=== PATIENT | female | born 1990 | race Caucasian/White ===

== ENCOUNTER 2019-11-20 02:41 | Inpatient (IN) ==
[2019-11-20] MEDS ORDERED: fentaNYL citrate 100 MCG/2 ML VIAL ONE ×2 (03:10→09:44)
[2019-11-20] MEDS ORDERED: CEFAZOLIN 250 MG/ML 1 GM VIAL ONE ×2 (04:06)
[2019-11-20] MEDS ORDERED: LIDOCAINE HCL 2% MPF (LOCAL) 5 ML VIAL INFIL ONE (04:07)
[2019-11-20] MEDS ORDERED: PROPOFOL IV EMULSION 10 MG/ML 20 ML VIAL IV ONE (04:07)
[2019-11-20] MEDS ORDERED: SUCCINYLCHOLINE 100MG/5ML SYR IV ONE (04:07)
[2019-11-20] MEDS ORDERED: ONDANSETRON INJ 2 MG/ML 2 ML VIAL ONE (04:18)
[2019-11-20 04:20] LABS: INR 1.6 (0.9-1.1); Partial Thromboplastin Ratio 1.3; Partial Thromboplastin Time 35.3 Seconds (21.0-31.0); Prothrombin Time 16.4 Seconds (9.0-12.0)
[2019-11-20 04:23] LABS: Alanine Aminotransferase 15 U/L (12-78); Albumin Globulin Ratio 0.7 (0.9-2); Alkaline Phosphatase 132 U/L (45-117); Aspartate Aminotransferase 26 U/L (15-37); BUN Creatinine Ratio 15.3 (10-20); Bilirubin,Total 0.5 mg/dl (0.2-1); Blood Urea Nitrogen 18 mg/dl (7-18); Carbon Dioxide 20 mmol/L (21-32); Chloride 108 mmol/L (98-107); Est GFR (African American) 70.9; Est GFR (Non-African American) 61.2; Globulin 2.8 gm/dl (2.5-4.0); Glucose 128 mg/dl (70-99); Potassium 3.7 mmol/L (3.5-5.1); Sodium 138 mmol/L (136-145); Total Protein 4.8 gm/dl (6.4-8.2)
[2019-11-20] MEDS ORDERED: DIPHTHERIA/TETANUS/PERTUSSIS 0.5 ML SYR/VIAL IM ONE (04:23)
[2019-11-20] MEDS ORDERED: NALOXONE HCL 0.4 MG/1 ML VIAL/CARP IV PRN (04:23)
[2019-11-20] MEDS ORDERED: MORPHINE SULFATE PCA 30 MG/30 ML IV PRN (04:23)
[2019-11-20] MEDS ORDERED: SUPERCREAM 0.870% 15 GM JAR EXT PRN (04:23)
[2019-11-20] MEDS ORDERED: ONDANSETRON INJ 2 MG/ML 2 ML VIAL IV PRN (04:23)
[2019-11-20] MEDS ORDERED: SENNA 8.6 MG TAB PO PRN (04:23)
[2019-11-20] MEDS ORDERED: HYDROCORTISONE ACETATE 25 MG SUPP PR PRN (04:23)
[2019-11-20] MEDS ORDERED: BENZOCAINE 20% AER SPR 82.5 GM CAN EXT PRN (04:23)
[2019-11-20] MEDS ORDERED: MAGNESIUM HYDROXIDE SUSP 30 ML UDC PO PRN (04:23)
[2019-11-20] MEDS ORDERED: MEPERIDINE HCL 50 MG/ML CARP IV PRN ×2 (04:23→09:37)
[2019-11-20] MEDS ORDERED: PROMETHAZINE HCL 25 MG in SODIUM CHLORIDE 0.9% 50 ML IV PRN (04:23)
[2019-11-20] MEDS ORDERED: DiphenhydrAMINE HCL 50 MG/ML VIAL IV PRN (04:23)
[2019-11-20 04:27] LABS: Hematocrit (blood only) 21.1 % (37-47); Mean Corpuscular Hemoglobin 30.6 pg (25-34); Mean Corpuscular Hgb Conc 33.2 g/dL (32-36); Mean Corpuscular Volume 92.1 fL (80-100); Mean Platelet Volume 11.4 fL (7.4-10.4); Nucleated RBC # (auto) 0.06 K/uL (0-0); Nucleated RBC % (auto) 0.4 %; Platelet Count 81 K/uL (130-400); RDW Coefficient of Variation 12.6 % (11.5-14.5); RDW Standard Deviation 42.3 fL (36.4-46.3); Red Blood Count 2.29 M/uL (4.2-5.4); White Blood Count 13.27 K/uL (4.8-10.8)
[2019-11-20] MEDS ORDERED: SODIUM CHLORIDE 0.9% 250 ML IV PRN ×6 (04:28→19:17)
[2019-11-20] MEDS ORDERED: miSOPROStoL 200 MCG TAB PR ONE (04:28)
[2019-11-20 04:29] LABS: Basophils # (auto) 0.02 K/uL (0-0.2); Basophils % (auto) 0.2 %; Eosinophils # (auto) 0.03 K/uL (0-0.5); Eosinophils % (auto) 0.2 %; Immature Granulocytes # (auto) 0.15 K/uL (0.00-0.02); Immature Granulocytes % (auto) 1.1 %; Lymphocytes # (auto) 1.15 K/uL (1.2-3.4); Lymphocytes % (auto) 8.7 %; Monocytes # (auto) 1.04 K/uL (0.11-0.59); Monocytes % (auto) 7.8 %; Neutrophils # (auto) 10.88 K/uL (1.4-6.5); Platelet Estimate Decreased (Normal); Polychromasia 1+
[2019-11-20] MEDS ORDERED: LACTATED RINGER'S 1,000 ML IV SCH (04:30)
[2019-11-20 04:40] LABS: Base Excess Cord Arterial Bld -23.4 mEq/L (-9-1.8); CO2 Cord Arterial Blood 112 mmHg (39.1-73.5); HCO3 Cord Arterial Blood 15 mmol/L (19.7-28.5); Oxygen Sat Cord Arterial Blood < 60.0 % (<60); PO2 Cord Arterial Blood 15 mmHg (4.1-31.7); pH Cord Arterial Blood 6.74 (7.1-7.38)
[2019-11-20 04:41] LABS: Base Excess Cord Venous Blood -20.6 mEq/L (-7.7-1.9); Cord Venous Blood HCO3 16 mmol/L (18.4-26.8); Cord Venous Blood PCO2 107 mmHg (30.4-57.2); Cord Venous Blood PO2 19 mmHg (14.1-43.3); O2 Saturation Cord Venous Bld < 60.0 % (<68)
[2019-11-20 04:42] LABS: Fibrinogen 72 mg/dl (184-400)
[2019-11-20] MEDS ORDERED: TRANEXAMIC ACID / 0.7% NACL 1000MG/100ML BAG IV ONE (04:42)
[2019-11-20] MEDS ORDERED: TRANEXAMIC ACID 1,000 MG in 0.9 % SODIUM CHLORIDE 100 ML IV ONE (04:45)
--- NOTE | 2019-11-20 04:49 | Anesthesiology Consultation ---
Date of Service November 20, 2019 Assessment & Plan Chart Review Chart Review: Acceptable Risk for Surgery Consults Requested none History Surgery Operation Date: 11/20/19 03:00 Proposed Procedures p Section in LD - Maddison Arnold MD, FACOG Allergies Allergy/AdvReac Type Severity Reaction Status Date / Time No Known Allergies Allergy Verified 11/20/19 04:29 Medications Active Medications Generic Name Dose Route Start Last Admin Trade Name Freq PRN Reason Stop Dose Admin Meperidine HCl 50 - 75 mg 11/20/19 04:23 11/20/19 04:43 Demerol IV 12/04/19 04:22 75 mg Q4H PRN Administration Pain Physical Exam Vital Signs Last Vital Signs Pulse 86 11/20/19 04:44 BP 114/85 11/20/19 04:30 Pulse Ox 100 11/20/19 04:44 Testing Laboratory Results 11/20/19 03:47 11/20/19 03:47 PT 16.4 Seconds (9.0-12.0) H 11/20/19 03:47 INR 1.6 (0.9-1.1) H 11/20/19 03:47 APTT 35.3 Seconds (21.0-31.0) H 11/20/19 03:47 Blood Type O Positive 11/20/19 03:47 Antibody Screen NEGATIVE 11/20/19 03:47
--- NOTE | 2019-11-20 04:55 | Anesthesiology Progress Note ---
Date of Service November 20, 2019 Anesthesia Post Procedure Vital Signs Vital Signs: Pulse BP Pulse Ox 11/20/19 04:49 128 H 135/63 100 11/20/19 04:44 86 100 11/20/19 04:39 101 H 100 11/20/19 04:34 87 100 11/20/19 04:30 93 H 114/85 11/20/19 04:29 83 100 11/20/19 04:24 78 100 11/20/19 04:19 95 H 96 11/20/19 04:18 92 H 135/63 11/20/19 03:06 83 100 11/20/19 03:01 79 100 11/20/19 02:56 76 100 Transfer of Care Handoff Completed per policy Notes Mental Status: alert / awake / arousable and participated in evaluation Patient Amnestic to Procedure: Yes Nausea / Vomiting: adequately controlled Pain: adequately controlled Airway Patency, RR, SpO2: stable & adequate BP & HR: stable & adequate Hydration State: stable & adequate Anesthetic Complications: no major complications apparent (Labs indicate significant anemia and coagulopathy. Pt to be transfered to SICU for tranfusion and further mgt.)
--- NOTE | 2019-11-20 05:27 | History & Physical Report ---
Date of Service November 20, 2019 Assessment & Plan (1) bradycardia: When I found the fht in the 70s and not responding, I informed the patient that we needed to proceed emergently to delivery via c/s. in room. I briefly discussed with them the risks of surgery but that the baby was in distress and needed to be delivered. I obtained verbal consent from the patient and her . Did not have time to get preop labs. anesthesia arrived almost immediately and patient was in the OR at 3:10. Please see operative note for further details. Trying to obtain pnr. (2) with 34 completed weeks gestation: History of Present Illness Chief Complaint: cramping Primary Care Provider: NO PCP Patient is a 29 yowf with edc unknown, who presented as an unattached patient for cramping. She was in town for her baby shower. We have no records. Patient reports that she is 34 weeks with no issues with the pregna ncy. Cared for in [place]. Her history was briefly obtained. She was placed on the monitor at 2:53. They struggles to find fht. Nursing searched for about 5 minutes and then I came in with ultrasound. Baby was cephalic and fhr found to be in the low 70s. Was not recovering. Allergies Allergy/AdvReac Type Severity Reaction Status Date / Time No Known Allergies Allergy Verified 11/20/19 04:29 Patient History Medical History (Updated 11/20/19 @ 05:24 by Maddison Arnold MD, FACOG) with 34 completed weeks gestation Surgical History (Updated 11/20/19 @ 05:22 by Maddison Arnold MD, FACOG) No history of previous surgery Social History Preferred Language: Nigerien Communication Ability: Effective Cutter Helper Required: No Beliefs That Will Affect Care: None marital status: Current Living Situation: Spouse Other Information That Helps Us Care for You: No OB History first STRAIGHT CUTTER History not obtained Review of Systems All systems reviewed & are unremarkable except as noted in HPI & below Physical Exam Constitutional: WD/WN, vitals as above Gastrointestinal (Abdomen): soft, did not palpate contractions Psychiatric: A+Ox3, euthymic affect Genitourinary: cx --not examined efm--70s Results & Data Vital Signs (Past 12 Hours) Vital Signs Pulse Resp BP Pulse Ox 11/20/19 05:10 103 H 11 L 121/90 100 11/20/19 05:08 80 17 121/90 100 11/20/19 04:49 128 H 135/63 100 11/20/19 04:44 86 100 11/20/19 04:39 101 H 100 11/20/19 04:34 87 100 11/20/19 04:30 93 H 114/85 11/20/19 04:29 83 100 11/20/19 04:24 78 100 11/20/19 04:19 95 H 96 11/20/19 04:18 92 H 135/63 11/20/19 03:06 83 100 11/20/19 03:01 79 100 11/20/19 02:56 76 100 Code Status & VTE Plan VTE Prophylaxis Plan VTE Prophylaxis will be ordered: No Coding Level of Care Code None Diagnoses bradycardia with 34 completed weeks gestation Z3A.34 Additional Codes OB Charges - 73193 C/S: 09872 C/S ([id number]) OB Charges - 26379O Bakri: [id number] Bakri ([id number]) OB Procedure charges OB Charges 16660 C/S [id number] Bakri
--- NOTE | 2019-11-20 05:42 | Obstetrical Progress Note ---
Date of Service November 20, 2019 Assessment & Plan (1) DIC (disseminated intravascular coagulation): labs were returning hgb was 7, plts 81K, fibrinogen 72. There is a small amount of blood draining into the bag attached to the Bakri. Patient is in DIC from massive abruption. Plan to transfer to ICU as needs much more intensive monitoring. pulse in 80-90s, bp not hypotensive. massive transfusion protocol initiated. Patient given 800mcg of cytotec to the rectum prior to leaving the or. Given 1 gm transexamic acid in recovery here. Discussed the patient with the PA in the ICU who accepts her in transfer. (2) Placenta abruption, delivered, current hospitalization: Subjective Patient returned to the room. She opened her eyes when her name was called. Labs were drawn in the OR. Patient's vital signs remainied stable throughout her OR course. Physical Exam Constitutional WD/WN, vitals as above Genitourinary uterus palpable at a little below u Results & Data Vital Signs (Past 12 Hours) Vital Signs Temp Pulse Resp BP Pulse Ox 11/20/19 05:32 36.6 C 84 17 137/68 100 11/20/19 05:28 76 17 137/68 100 11/20/19 05:18 81 15 139/93 100 11/20/19 05:10 103 H 11 L 121/90 100 11/20/19 05:08 80 17 121/90 100 11/20/19 04:49 128 H 135/63 100 11/20/19 04:44 86 100 11/20/19 04:39 101 H 100 11/20/19 04:34 87 100 11/20/19 04:30 93 H 114/85 11/20/19 04:29 83 100 11/20/19 04:24 78 100 11/20/19 04:19 95 H 96 11/20/19 04:18 92 H 135/63 11/20/19 03:06 83 100 11/20/19 03:01 79 100 11/20/19 02:56 76 100
[2019-11-20] MEDS ORDERED: CALCIUM GLUCONATE 10% 1,000 MG in SODIUM CHLORIDE 0.9% 50 ML IV STA (05:53)
--- NOTE | 2019-11-20 06:01 | XRay Report ---
XR KUB/Abdomen 1 view CLINICAL HISTORY: Stat Section with no count COMPARISON STUDY: No previous studies for comparison. FINDINGS: The soft tissues, psoas shadows, renal outlines and intestinal gas pattern appear normal. T here is no evidence for bowel obstruction. No abnormal abdominal calcifications are seen. IMPRESSION: Normal study. No evidence for a radiopaque foreign body. ACT 112: Negative or not required by law. The above report was generated using voice recognition software. It may contain grammatical, syntax or spelling errors. Electronically signed by: Abhishek Gillette M.D. 11/20/2019 6:00 AM
[2019-11-20 06:06] LABS: Blood Urea Nitrogen 19 mg/dl (7-18); Carbon Dioxide 19 mmol/L (21-32); Chloride 107 mmol/L (98-107); Potassium 3.9 mmol/L (3.5-5.1); Sodium 137 mmol/L (136-145)
--- NOTE | 2019-11-20 06:06 | Critical Care Consultation ---
Date of Consultation November 20, 2019 History of Present Illness Attending Physician: Maddison Arnold MD, FACOG History of Present Illness Ms. Walters is a 29-year-old female with no past medical history who was 34 weeks of gestation with her first without issue who was in town for a baby shower. She normally follows in [place]. She developed abdominal cramping and presented to the emergency department. heart rate was found to be 70s and would not recover and patient consented for emergent . was delivered and found to be apneic and required intubation and required emergent transfer to [facility]. Ms. Pina was found to have Allergies Allergy/AdvReac Type Severity Reaction Status Date / Time No Known Allergies Allergy Verified 11/20/19 04:29 Patient History Medical History (Updated 11/20/19 @ 05:38 by Maddison Arnold MD, FACOG) with 34 completed weeks gestation Surgical History (Updated 11/20/19 @ 05:22 by Maddison Arnold MD, FACOG) No history of previous surgery Social History Preferred Language: Kazakh Communication Ability: Effective Cardiac Surgeon Required: No Beliefs That Will Affect Care: None marital status: Current Living Situation: Spouse Other Information That Helps Us Care for You: No Results & Data Results & Data ([facility]) Vital Signs (Past 12 Hours) Vital Signs Temp Pulse Resp BP Pulse Ox 11/20/19 06:01 37 C 93 H 13 147/86 H 100 11/20/19 05:50 36.6 C 90 16 141/83 H 100 11/20/19 05:32 36.6 C 84 17 137/68 100 11/20/19 05:28 76 17 137/68 11/20/19 05:18 81 15 139/93 100 11/20/19 05:10 103 H 11 L 121/90 100 11/20/19 05:08 80 17 121/90 100 11/20/19 04:49 128 H 135/63 100 11/20/19 04:44 86 100 11/20/19 04:39 101 H 100 11/20/19 04:34 87 100 11/20/19 04:30 93 H 114/85 11/20/19 04:29 83 100 11/20/19 04:24 78 100 11/20/19 04:19 95 H 96 11/20/19 04:18 35.7 C L 92 H 18 135/63 98 11/20/19 03:06 83 100 11/20/19 03:01 79 100 11/20/19 02:56 76 100 Coding
[2019-11-20 06:07] LABS: BUN Creatinine Ratio 15.1 (10-20); Calcium 7.8 mg/dl (8.5-10.1); Glucose 201 mg/dl (70-99)
--- NOTE | 2019-11-20 06:12 | Communication Note ---
Date of Service: November 20, 2019 addendum to H&P--Patient notes that she felt movement up to an hour prior to presentation.
--- NOTE | 2019-11-20 06:12 | XRay Report ---
XR chest 1V portable CLINICAL HISTORY: central line tube position COMPARISON STUDY: No previous studies for comparison. FINDINGS: Central catheter placed in superior vena cava. No evidence pneumothorax. Lungs are grossly clear. IMPRESSION: Central catheter placed in the superior vena cava. No evidence for pneumothorax. ACT 112: Negative or not required by law. The above report was generated using voice recognition software. It may contain grammatical, syntax or spelling errors. Electronically signed by: Abhishek Gillette M.D. 11/20/2019 6:11 AM
--- NOTE | 2019-11-20 06:12 | Procedure Note ---
Procedure Note Date of Service November 20, 2019 Note INTERNAL JUGULAR CENTRAL LINE PROCEDURE NOTE: Procedure: Internal Jugular Central Line Placement Attending: Dr. Matthew Kat Provider: JOLENE Foreman Indication: Emergent rapid blood product transfusion, Poor Venous Access, Multiple Lab Draws Necessary, etc. Anesthesia: Lidocaine 1% Line placed emergently in the setting of massive blood product transfusion for acute hemorrhage A time-out was completed verifying correct patient, procedure, site, positioning, and implants(s) or special equipment if applicable. Patients right neck was cleansed and draped in the typical sterile fashion using Chloraprep. The Internal Jugular Vein and Carotid Artery were identified using ultrasound. The superficial tissue was anesthetized using 3 mL of 1% lidocaine without epinephrine under direct visualization with the ultrasound. After adequate anesthetization was achieved, the Internal Jugular vein was cannulated under direct ultrasound guidance using an introducer needle on a syringe. Good venous blood return was maintained prior to removal of syringe from introducer needle. Using Seldinger Technique, a guide wire was advanced through the introducer needle without resistance. The introducer needle was removed and ultrasound images were obtained of the guide wire within the Internal Jugular Vein and saved to the patients medical record. A small incision was made in penetrating fashion at the guide wire insertion site utilizing an 11 blade scalpel. The dilator was advanced to the vessel without resistance. The dilator was exchanged for the triple lumen catheter which was advanced into the vessel without resistance. The guide wire was removed intact from the catheter without issue. Claves were placed on each catheter tip with confirmation of good blood flow from each lumen. Each port was easily flushed with sterile saline. The catheter was placed at 15 cm and sutured in place. BioPatch was applied to the catheter and a sterile Tegaderm dressing was applied over the catheter with careful attention to sterility. Patient tolerated procedure well. No immediate complications were met. Post procedure x-ray was completed, placement was appropriate and no pneumothorax was noted. Procedural Ultrasound Guidance: Procedure Date: 11/20/2019 Indication: Central line insertion Attending: Dr. Matthew Kat Provider: JOLENE Foreman Artery AND Vein visualized: Yes Compressible Vein: Yes Guidewire or Short Catheter seen in vein prior to dilation: Yes Line confirmed in Vein with ultrasound: Yes Images obtained are saved for permanent record. Coding CPT Codes Tubes, Drains, and Vasc Access - Tubes, Drains, and Vasc Access: [id number] Place catheter in vein superior or inferior vena cava ([id number]) Tubes, Drains, and Vasc Access - Tubes, Drains, and Vasc Access: [id number] Ultrasound Guidance For Vascular ([id number]) [facility] Procedure Codes (Charges) Tubes, Drains, and Vasc Access Procedure 1: Tubes, Drains, and Vasc Access: [id number] Place catheter in vein superior or inferior vena cava Procedure 2: Tubes, Drains, and Vasc Access: [id number] Ultrasound Guidance For Vascular
[2019-11-20] MEDS ORDERED: ICU PROTOCOL FOR HYPERGLYCEMIA PRN (06:20)
[2019-11-20 06:28] LABS: Hematocrit (blood only) 22.7 % (37-47); Hemoglobin 7.8 g/dL (12.0-16.0); Mean Corpuscular Hemoglobin 32.2 pg (25-34); Mean Corpuscular Hgb Conc 34.4 g/dL (32-36); Mean Corpuscular Volume 93.8 fL (80-100); Mean Platelet Volume 11.2 fL (7.4-10.4); Platelet Count 124 K/uL (130-400); RDW Coefficient of Variation 13.3 % (11.5-14.5); RDW Standard Deviation 45.6 fL (36.4-46.3); Red Blood Count 2.42 M/uL (4.2-5.4); White Blood Count 17.13 K/uL (4.8-10.8)
[2019-11-20] MEDS: CEFAZOLIN 2000MG 2,000 MG/15 ML SYR IV SCH ×3 (06:38→21:45)
[2019-11-20] MEDS ORDERED: miSOPROStoL 200 MCG TAB ONE (07:13)
[2019-11-20 07:27] LABS: Appearance Urine Turbid (Clear); Bacteria Urine Automated Negative (Negative); Bilirubin Urine Negative (Negative); Blood Urine 3+ (Negative); Color Urine Orange; Epithelial Cell Urine Auto >30 /lpf (0-5); Glucose Urine UA Trace (Negative); Ketones Urine Negative (Negative); Leukocyte Esterase Urine Trace (Negative); Nitrite Urine Negative (Negative); Protein Urine 4+ (Negative); RBC Urine Automated >30 /hpf (0-4); Specific Gravity Urine 1.024 (1.000-1.030); Urobilinogen Urine Negative (Negative); WBC Urine Automated >30 /hpf (0-5)
[2019-11-20 07:39] LABS: Hematocrit (blood only) 22.3 % (37-47); Hemoglobin 7.7 g/dL (12.0-16.0); Mean Corpuscular Hemoglobin 32.4 pg (25-34); Mean Corpuscular Hgb Conc 34.5 g/dL (32-36); Mean Corpuscular Volume 93.7 fL (80-100); Mean Platelet Volume 11.1 fL (7.4-10.4); Platelet Count 57 K/uL (130-400); Platelet Estimate Decreased (Normal); RDW Coefficient of Variation 13.2 % (11.5-14.5); RDW Standard Deviation 45.1 fL (36.4-46.3); Red Blood Count 2.38 M/uL (4.2-5.4); White Blood Count 12.06 K/uL (4.8-10.8)
[2019-11-20 07:47] LABS: INR 1.1 (0.9-1.1)
[2019-11-20 07:51] LABS: Fibrinogen 227 mg/dl (184-400)
--- NOTE | 2019-11-20 08:05 | Critical Care Consultation ---
Date of Consultation November 20, 2019 Assessment & Plan (1) DIC (disseminated intravascular coagulation): Impression: 29-year-old female admitted for urgent due to decreased heart tones, found to be in DIC postoperatively due to placental abruption. Liver enzymes are not elevated and the patient has no new pain so I think a diagnosis of help or amniotic fluid embolism are unlikely. She does have 4+ protein on urinalysis and preeclampsia is possible but she is not significantly hypertensive. Recommendation: 1. DIC: Suspect related to placental abruption. Continue supportive care. She has delivered and has a Jed balloon in place. She is received oxytocin. Continue to monitor labs. If hemoglobin remains stable, will try and target platelets above 50-60,000, INR less than 1.5, fibrinogen greater than 200, and normal calcium levels. Transfusion goal should be around 8. Check LDH 2. Proteinuria: Unclear etiology. No prior history of eclampsia. The patient has delivered and continued supportive care as needed. Given the absence of hypertension, I do not feel strongly the patient needs to be initiated on magnesium 3. Acute kidney injury: Mild increase in serum creatinine to 1.28 from 1.19 on admission. Bright catheter is in place. Trend for now. 4. Hypoxemia: Would benefit from a low-dose of Lasix. Continue to wean oxygen as tolerated. Continue to follow in ICU for now. (2) Placenta abruption, delivered, current hospitalization: (3) Acute kidney injury: History of Present Illness Attending Physician: Maddison Arnold MD, FACOG History of Present Illness Asked by the OB service to assist in management of the disseminated intravascular coagulation secondary to placental abruption after urgent C- section due to decreased heart tones. History is obtained from review electronic medical record and discussion with the patient. The patient is a 29-year-old G1, P0 who was visiting from out of town. She gets her care [place]. She felt abdominal cramping and presented to the emergency room. She was noted to have decreased heart tones and was taken urgently for . Please refer to the OB notes. Postoperatively, the patient had labs showing low platelets, low fibrinogen, and apparently there was some atonic contractions of the uterus intraoperatively. Jed balloon was placed and the patient received Cytotec. She was transferred to the ICU after receiving trans-examined acid and a massive transfusion protocol. She is remained hemodynamically stable. We are awaiting repeat labs from her transfusion. She did have a central venous catheter placed on arrival to the ICU. Currently the patient is easily arousable and oriented to person place and time. She has no neurological complaints. She has not noted any bleeding, bruising, or petechiae. No history of help or eclampsia. No prior history of bleeding diathesis. Based on review the medical record it appears the patient has received 1 unit of packed cells, 2 units of cryoprecipitate, 1 unit of FFP, and 1 unit of platelets at 0500 Allergies Allergy/AdvReac Type Severity Reaction Status Date / Time No Known Allergies Allergy Verified 11/20/19 04:29 Patient History Medical History (Updated 11/20/19 @ 07:55 by Mikey Kat MD) with 34 completed weeks gestation Surgical History (Updated 11/20/19 @ 05:22 by Maddison Arnold MD, FACOG) No history of previous surgery Social History Preferred Language: Nauruan Communication Ability: Effective Framing Specialist Required: No Beliefs That Will Affect Care: None marital status: Current Living Situation: Spouse Other Information That Helps Us Care for You: No Review of Systems Review of Systems: Refer to admission H&P. I have no additions or deletions Results & Data Results & Data ([facility]) Vital Signs (Past 12 Hours) Vital Signs Temp Pulse Resp BP Pulse Ox 11/20/19 06:40 87 17 100 11/20/19 06:35 90 18 103/86 100 11/20/19 06:30 91 H 21 11/20/19 06:21 104 H 13 100 11/20/19 06:20 94 H 15 142/102 H 11/20/19 06:17 88 19 139/83 11/20/19 06:16 37 C 88 14 139/83 100 11/20/19 06:14 101 H 17 118/105 H 100 11/20/19 06:10 104 H 18 100 11/20/19 06:05 84 19 140/82 100 11/20/19 06:02 98 H 13 147/86 H 100 11/20/19 06:01 37 C 93 H 13 147/86 H 100 11/20/19 06:00 86 16 100 11/20/19 05:52 82 17 100 11/20/19 05:51 82 14 141/83 H 100 11/20/19 05:50 36.6 C 90 18 139/86 100 11/20/19 05:45 36.3 C L 11/20/19 05:40 102 H 14 99 11/20/19 05:35 83 15 110/90 100 11/20/19 05:32 36.6 C 84 17 137/68 100 11/20/19 05:30 36.3 C L 78 15 100 11/20/19 05:28 74 16 137/68 11/20/19 05:20 85 14 100 11/20/19 05:18 97 H 14 139/93 100 11/20/19 05:15 36.3 C L 11/20/19 05:10 36.3 C L 82 15 121/90 11/20/19 05:08 80 17 121/90 11/20/19 05:02 123 H 16 121/90 11/20/19 05:01 112 H 17 11/20/19 05:00 36.3 C L 11/20/19 04:49 128 H 135/63 100 11/20/19 04:44 86 100 11/20/19 04:39 101 H 100 11/20/19 04:34 87 100 11/20/19 04:30 93 H 114/85 11/20/19 04:29 83 100 11/20/19 04:28 36.3 C L 15 100 11/20/19 04:24 78 100 11/20/19 04:19 95 H 96 11/20/19 04:18 35.7 C L 92 H 18 135/63 98 11/20/19 03:06 83 100 11/20/19 03:01 79 100 11/20/19 02:56 76 100 Laboratory Results 11/20/19 07:05 11/20/19 05:30 Fibrinogen 72 INR 1.6 Calcium 7.8 Liver enzymes unremarkable Urinalysis with 4+ protein and 3+ blood Diagnostic Findings Chest x-ray was independently reviewed. It demonstrates the central line to be in good position. There is hazy opacity throughout both lungs, more prominent on the right than the left. KUB was performed which demonstrated no foreign bodies. Coding Level of Care Code Critical Care 1st 30-74 mins Diagnoses DIC (disseminated intravascular coagulation) D65 Placenta abruption, delivered, current hospitalization O45.90 Acute kidney injury N17.9 Time Spent (min) 85 Comment 85 minutes critical care time between myself and critical care GIANNI evaluating managing and stabilizing patient. [id number]
[2019-11-20] MEDS ORDERED: CALCIUM CHLORIDE 10% 1,000 MG in SODIUM CHLORIDE 0.9% 50 ML IV STA (08:10)
--- NOTE | 2019-11-20 08:24 | Operative Report (OR) ---
DATE OF OPERATION: 11/20/2019 PREOPERATIVE DIAGNOSES: 1. at approximately 34 weeks. 2. bradycardia on admission. POSTOPERATIVE DIAGNOSES: 1. at approximately 34 weeks. 2. bradycardia on admission. 3. Massive abruption with [place] uterus. PROCEDURE: Emergent primary low transverse section. SURGEON: Maddison Arnold MD. ULTRASONIC SEAMING MACHINE OPERATOR: Lu Beasley RN. ESTIMATED BLOOD LOSS: 1000 mL. DICTATION ENDS HERE I attest to the content of the Intraoperative Record and any orders documented therein. Any exceptions are noted below. MTDD
[2019-11-20] MEDS ORDERED: FUROSEMIDE 10 MG in SYRINGE 0 ML IV ONE (08:30)
--- NOTE | 2019-11-20 08:42 | Obstetrical Progress Note ---
Date of Service November 20, 2019 Assessment & Plan (1) S/P section: routine postop care. They will start her brush maker machine downstairs. Keep npo for now with just a few ice chips. (2) DIC (disseminated intravascular coagulation): Correcting abnormalities. Fibrinogen back up , continuing to transfuse rbc, monitor plts. Has received 3 u prbc, 1 plt, 2 cryo, 1 ffp. Bakri in for 18 hours at 9pm. If all goes well, will plan on removing water at about that time. Day #:: 0 Subjective Patient is awake and alert. answering questions. NOtes her vagina felt itchy and then she felt a gush of blood. Notes when she is still her pain is minimal, however, with any movement she has increased pain. Physical Exam Constitutional WD/WN, vitals as above Gastrointestinal (Abdomen) fundus palpable at 1 below u Psychiatric A+Ox3, euthymic affect Genitourinary examined chux and it appears to be a watery blood tinged fluid. She had another small gush of this while examining her--very watery. ON pushing on the fundus, no gush of blood noted. Emptied the bag for the Bakri and 150cc removed--this is since surgery. There was only slightly more in the bag by my visualization since my last exam. Results & Data Vital Signs (Past 12 Hours) Vital Signs Temp Pulse Resp BP Pulse Ox 11/20/19 06:40 87 17 100 11/20/19 06:35 90 18 103/86 100 11/20/19 06:30 91 H 21 100 11/20/19 06:21 104 H 13 100 11/20/19 06:20 94 H 15 142/102 H 100 11/20/19 06:17 88 19 139/83 100 11/20/19 06:16 37 C 88 14 139/83 100 11/20/19 06:14 101 H 17 118/105 H 100 11/20/19 06:10 104 H 18 100 11/20/19 06:05 84 19 140/82 100 11/20/19 06:02 98 H 13 147/86 H 100 11/20/19 06:01 37 C 93 H 13 147/86 H 100 11/20/19 06:00 86 16 100 11/20/19 05:52 82 17 100 11/20/19 05:51 82 14 141/83 H 100 11/20/19 05:50 36.6 C 90 18 139/86 11/20/19 05:45 36.3 C L 11/20/19 05:40 102 H 14 99 11/20/19 05:35 83 15 110/90 100 11/20/19 05:32 36.6 C 84 17 137/68 100 11/20/19 05:30 36.3 C L 78 15 11/20/19 05:28 74 16 137/68 11/20/19 05:20 85 14 100 11/20/19 05:18 97 H 14 139/93 11/20/19 05:15 36.3 C L 11/20/19 05:10 36.3 C L 82 15 121/90 11/20/19 05:08 80 17 121/90 11/20/19 05:02 123 H 16 121/90 11/20/19 05:01 112 H 17 11/20/19 05:00 36.3 C L 11/20/19 04:49 128 H 135/63 100 11/20/19 04:44 86 100 11/20/19 04:39 101 H 100 11/20/19 04:34 87 100 11/20/19 04:30 93 H 114/85 11/20/19 04:29 83 100 11/20/19 04:28 36.3 C L 15 11/20/19 04:24 78 100 11/20/19 04:19 95 H 96 11/20/19 04:18 35.7 C L 92 H 18 135/63 98 11/20/19 03:06 83 100 11/20/19 03:01 79 100 11/20/19 02:56 76 100
[2019-11-20] MEDS: SODIUM CHLORIDE 0.9% 1000ML 1,000 ML IV SCH ×3 (08:57→15:21)
--- NOTE | 2019-11-20 09:21 | Operative Report (OR) ---
DATE OF OPERATION: 11/20/2019 PREOPERATIVE DIAGNOSES: 1. at suspected 34 weeks. 2. bradycardia in the 70s. POSTOPERATIVE DIAGNOSES: 1. at suspected 34 weeks. 2. bradycardia in the 70s. 3. Massive abruption. 4. Disseminated intravascular coagulation. PROCEDURE: 1. Emergent low transverse section. 2. Placement of a Bakri balloon. SURGEON: Maddison Arnold MD. WELDER ASSEMBLER: Daisy Beasley RN. ANESTHESIOLOGIST: Dr. Danish Wade. ANESTHESIA: General. ESTIMATED BLOOD LOSS: 1500 mL FLUIDS: 1400 mL of IV fluid. URINE OUTPUT: 10 mL of concentrated blood tinged urine drained from the bladder at the end of the procedure. INDICATIONS: The patient is a 1, para 0 who presents as an unattached patient to labor and delivery, noting cramping. Attempts to determine heart tones for about 5 minutes were unsuccessful, so I brought in the ultrasound machine, the heart was evaluated and heart tones were found to be in the 70s. These were unresponsive to any positioning or intervention. The patient was taken urgently to the OR. FINDINGS: Viable male infant in cephalic presentation. There was no nuchal cord. There was a couvelaire uterus consistent with massive abruption. After the baby was delivered, the placenta was very easily removed with minimal traction and after removal of the placenta, probably 750 mL plus of clot was removed from the uterus. The tubes and ovaries were noted to be normal bilaterally. The uterus was very floppy secondary to blood infiltration into the muscle wall. Apgars pending. COMPLICATIONS: DIC. DRAINS: Bright. Bag attached to Bakri balloon DISPOSITION: To recovery room in labor and delivery and then pretty quickly subsequently transferred to the ICU. DESCRIPTION OF PROCEDURE: The patient presented to labor and delivery, her arrival was approximately 2:53 when she was put on the monitor, nursing searched for heart tones for approximately 5 minutes, could not find anything. I was called into the room as I was the doctor covering unattached patients. I brought in the ultrasound and I found the heart in the left lower quadrant and when the EFM was applied it was found to be in the 70s. This was unresponsive to position change and intervention and so an urgent section was called. Verbal consent was obtained from the patient after explaining the situation to her as there was no time to obtain this formally. The patient was then taken to the operating room with entry into the operating room at 3:10. She was placed in dorsal supine position. A Bright catheter was quickly placed. Betadine was splashed on her belly and she was prepped. Once I was given the go ahead from Dr. Wade, the knife was used to make a Pfannensteil incision down to the fascia. The fascia was incised with the knife. The fascia was opened by pulling with the paper products machine operator's fingers cephalad and caudad. The muscles were bluntly in the midline. The peritoneum was entered bluntly. The incision was stretched, the bladder blade was placed. Vesicouterine peritoneum was identified, entered with scissors. The bladder flap was created digitally. Hysterotomy incision was made with the knife and it was stretched cephalad and caudad with the paper products machine operator's fingers. The paper products machine operator's hand was placed into the uterus. A knuckle of cord then came up into the uterine incision. Then using fundal pressure, the fetus was delivered. The cord was clamped and cut and the was immediately handed to the awaiting nurses for drying and attention. Cord blood and gases were obtained. Please see their notes for evaluation. The placenta was easily removed from the uterus with minimal traction on the cord. After removal of the placenta at least 750 mL of fairly well organized clot came out after the placenta was delivered with an additional removal of several more small clots. I reached my hand into the abdominal cavity and exteriorized the uterus, it was boggy, it was a blue color consistent with blood infiltration into the muscle. The uterus was cleared of all clot and debris, aggressive massage was performed. Pitocin was given into the uterine muscle and IV. The hysterotomy incision was then repaired in 2 layers, the first in a running locked layer, the second in an imbricating layer and hemostasis was noted to be good from the incision. The posterior cul-de-sac was irrigated and cleared of a few more clots and debris with moistened laparotomy sponges. The uterus was reinteriorized. The hysterotomy incision was again inspected and found to be hemostatic. The gutters were cleared with laparotomy sponges removing a couple of further clots. Further clot was removed from the anterior bladder flap, but the bladder flap was hemostatic. The rectus muscles were reapproximated with several interrupted sutures of 0 Vicryl. The rectus muscles were examined and found to be hemostatic. The fascia was then reapproximated with 0 Vicryl starting at the edges and meeting in the midline. The subcuticular tissue was copiously irrigated with warm normal saline and the skin was then closed with 4-0 Vicryl subcuticular stitch. Since a sponge and needle count was not able to be performed prior to starting the procedure, we called for a KUB x-ray which was then done and read in the OR by me without evidence of retained sponges, sharps or instruments. The incision was then dressed. Attention was then turned to the vagina. Her legs were placed in a frog leg position. Massage was done of the uterus. It still continued to be quite boggy and there continued to be bleeding from the uterus. A Bakri balloon was then placed into the uterus by placing my hand into the vagina and guiding the balloon into the uterus. 200 mL of sterile saline was then placed into the balloon and then the tubing was attached to a Bright catheter. The patient was then transferred to a regular bed and taken to the recovery room. Please see the pending note for further information about her transfer to the ICU. I attest to the content of the Intraoperative Record and any orders documented therein. Any exceptions are noted below. ALMAZ
[2019-11-20] MEDS ORDERED: fentaNYL citrate 100 MCG/2 ML VIAL IV ONE (09:37)
[2019-11-20] MEDS: PRENATAL VITAMIN 1 TAB PO SCH (09:38)
[2019-11-20] MEDS: SIMETHICONE 80 MG CHEW PO SCH ×4 (09:38→20:16)
[2019-11-20] MEDS: FERROUS SULFATE 325 MG TAB PO SCH (09:38)
[2019-11-20] MEDS: DOCUSATE SODIUM 100 MG CAP PO SCH ×2 (09:46→20:17)
[2019-11-20] MEDS ORDERED: MEPERIDINE HCL 25 MG/ML CARP/VIAL IV PRN (09:57)
[2019-11-20 12:57] LABS: Hematocrit (blood only) 24.8 % (37-47); Hemoglobin 8.8 g/dL (12.0-16.0); Mean Corpuscular Hemoglobin 31.5 pg (25-34); Mean Corpuscular Hgb Conc 35.5 g/dL (32-36); Mean Corpuscular Volume 88.9 fL (80-100); Mean Platelet Volume 11.6 fL (7.4-10.4); Platelet Count 65 K/uL (130-400); RDW Coefficient of Variation 13.6 % (11.5-14.5); RDW Standard Deviation 44.6 fL (36.4-46.3); Red Blood Count 2.79 M/uL (4.2-5.4); White Blood Count 12.19 K/uL (4.8-10.8)
--- NOTE | 2019-11-20 13:06 | Obstetrical Progress Note ---
Date of Service November 20, 2019 Assessment & Plan (1) S/P section: (2) DIC (disseminated intravascular coagulation): Having normal lochia and decreasing output in the Bakri bag. Continue current therapy. Plan to start deflating Bakri at about 9pm. Expressed my sympathy for the situation with her son. Aware of the +3 protein on admission and that they got +4 in ICU. She has not been hypertensive through out her stay. did not get vitals prior to going to or, but was not hypertensive in the or. Her lfts postop were normal. Her envelope stamping machine operator was elevated but this is most likely explained by acute blood loss. I do not at this time think preeclampsia is an issue with this patient. I do not have a good explanation for her severe abruption. On discuss with the blood bank, she has had three units of prbc transfused as there is 1 unit of the 4 I initially ordered in the blood bank and then 4 more that were ordered by icu. She has had 1 plt, 2 cryo and one unit of ffp. There was some confusion that she got blood products in the OR, which she did not. Day #:: 0 Subjective Patient is resting in her bed. Her spoke with the NICU and her son is not doing well. Her is on the way to [facility] now. Patient has a negative retoucher hanging for pain and just received iv demerol. Physical Exam Constitutional WD/WN, vitals as above Gastrointestinal (Abdomen) appropriately tender, I think the fundus is 1cm or so below the umbilicus. Psychiatric A+Ox3, euthymic affect Genitourinary examined the chux and pad that were just changed by nursing and there is a small amount of blood and a little clot there is a small amount of watery red in the tube from the Bakri, only about 50 cc of clot in the bag when pushing on fundus, no gush noted. Results & Data Vital Signs (Past 12 Hours) Vital Signs Temp Pulse Resp BP Pulse Ox 11/20/19 11:20 71 13 121/78 99 11/20/19 11:05 68 13 119/73 98 11/20/19 10:50 66 18 121/83 99 11/20/19 10:35 65 11 L 132/79 100 11/20/19 10:33 36.4 C L 70 13 127/76 99 06/07/20 10:20 68 13 127/76 99 11/20/19 10:05 67 13 124/76 99 11/20/19 09:50 64 16 134/86 99 11/20/19 09:36 74 18 125/83 100 11/20/19 09:20 78 10 L 121/97 100 11/20/19 09:05 84 12 130/81 100 11/20/19 08:54 36.2 C L 76 12 137/80 98 11/20/19 08:50 73 16 137/80 100 11/20/19 08:35 36.2 C L 78 19 131/84 100 11/20/19 08:20 70 20 141/91 H 99 11/20/19 08:06 94 H 14 113/85 100 11/20/19 08:00 86 11/20/19 07:50 68 16 115/98 99 11/20/19 07:35 70 16 136/84 100 11/20/19 07:20 84 11 L 133/80 100 11/20/19 07:05 74 19 130/87 100 11/20/19 06:40 87 17 100 11/20/19 06:35 90 18 103/86 100 11/20/19 06:30 91 H 21 100 11/20/19 06:21 104 H 13 100 11/20/19 06:20 94 H 15 142/102 H 100 11/20/19 06:17 88 19 139/83 100 11/20/19 06:16 37 C 88 14 139/83 100 11/20/19 06:14 101 H 17 118/105 H 100 11/20/19 06:10 104 H 18 100 11/20/19 06:05 84 19 140/82 100 11/20/19 06:02 98 H 13 147/86 H 100 11/20/19 06:01 37 C 93 H 13 147/86 H 100 11/20/19 06:00 86 16 100 11/20/19 05:52 82 17 100 11/20/19 05:51 82 14 141/83 H 100 11/20/19 05:50 36.6 C 90 18 139/86 100 11/20/19 05:45 36.3 C L 11/20/19 05:40 102 H 14 99 11/20/19 05:35 83 15 110/90 100 11/20/19 05:34 36.2 C L 65 14 130/81 99 11/20/19 05:32 36.6 C 84 17 137/68 100 11/20/19 05:30 36.3 C L 78 15 100 11/20/19 05:28 74 16 137/68 11/20/19 05:20 85 14 100 11/20/19 05:18 97 H 14 139/93 100 11/20/19 05:15 36.3 C L 11/20/19 05:10 36.3 C L 82 15 121/90 11/20/19 05:08 80 17 121/90 11/20/19 05:02 123 H 16 121/90 11/20/19 05:01 112 H 17 11/20/19 05:00 36.3 C L 11/20/19 04:49 128 H 135/63 11/20/19 04:44 86 100 11/20/19 04:39 101 H 100 11/20/19 04:34 87 100 11/20/19 04:30 93 H 114/85 11/20/19 04:29 83 11/20/19 04:28 36.3 C L 15 11/20/19 04:24 78 100 11/20/19 04:19 95 H 96 11/20/19 04:18 35.7 C L 92 H 18 135/63 98 11/20/19 03:06 83 100 11/20/19 03:01 79 100 11/20/19 02:56 76 100
[2019-11-20 13:43] LABS: Prothrombin Time 10.9 Seconds (9.0-12.0)
[2019-11-20 19:14] LABS: Hematocrit (blood only) 20.7 % (37-47); Hemoglobin 7.4 g/dL (12.0-16.0)
[2019-11-20 19:46] LABS: Mean Corpuscular Hemoglobin 30.9 pg (25-34); Mean Platelet Volume 11.9 fL (7.4-10.4); Platelet Count 64 K/uL (130-400); RDW Coefficient of Variation 14.3 % (11.5-14.5); RDW Standard Deviation 45.5 fL (36.4-46.3); Red Blood Count 2.36 M/uL (4.2-5.4)
[2019-11-20 20:14] LABS: Mean Corpuscular Hgb Conc 35.7 g/dL (32-36); Mean Corpuscular Volume 88.5 fL (80-100)
--- NOTE | 2019-11-20 21:48 | Anesthesiology Progress Note ---
Date of Service November 20, 2019 Anesthesia Post Procedure Vital Signs Vital Signs: Temp Pulse Resp BP Pulse Ox 11/20/19 20:38 78 20 133/67 100 11/20/19 20:08 80 16 141/68 H 99 11/20/19 19:53 37 C 79 17 152/93 H 97 11/20/19 19:35 36.8 C 85 20 141/87 H 99 11/20/19 18:32 80 17 132/75 99 11/20/19 17:32 81 21 138/86 97 11/20/19 16:32 81 16 132/79 95 11/20/19 16:00 80 11/20/19 15:32 85 21 144/76 H 100 11/20/19 14:32 97 H 14 145/98 H 100 11/20/19 13:32 91 H 15 127/72 93 11/20/19 12:32 92 H 15 142/91 H 98 11/20/19 11:20 71 13 121/78 99 11/20/19 11:05 68 13 119/73 98 11/20/19 10:50 66 18 121/83 99 11/20/19 10:35 65 11 L 132/79 100 11/20/19 10:33 36.4 C L 70 13 127/76 99 11/20/19 10:20 68 13 127/76 99 11/20/19 10:05 67 13 124/76 99 11/20/19 09:50 64 16 134/86 99 11/20/19 09:36 74 18 125/83 100 11/20/19 09:20 78 10 L 121/97 100 11/20/19 09:05 84 12 130/81 100 11/20/19 08:54 36.2 C L 76 12 137/80 98 11/20/19 08:50 73 16 137/80 100 11/20/19 08:35 36.2 C L 78 19 131/84 100 11/20/19 08:20 70 20 141/91 H 99 11/20/19 08:06 94 H 14 113/85 100 11/20/19 08:00 86 11/20/19 07:50 68 16 115/98 99 11/20/19 07:35 70 16 136/84 100 11/20/19 07:20 84 11 L 133/80 100 11/20/19 07:05 74 19 130/87 100 06/07/20 06:40 87 17 100 11/20/19 06:35 90 18 103/86 100 11/20/19 06:30 91 H 21 100 11/20/19 06:21 104 H 13 100 11/20/19 06:20 94 H 15 142/102 H 100 11/20/19 06:17 88 19 139/83 100 11/20/19 06:16 37 C 88 14 139/83 100 11/20/19 06:14 101 H 17 118/105 H 100 11/20/19 06:10 104 H 18 100 11/20/19 06:05 84 19 140/82 100 11/20/19 06:02 98 H 13 147/86 H 100 11/20/19 06:01 37 C 93 H 13 147/86 H 100 11/20/19 06:00 86 16 100 11/20/19 05:52 82 17 100 11/20/19 05:51 82 14 141/83 H 100 11/20/19 05:50 36.6 C 90 18 139/86 100 11/20/19 05:45 36.3 C L 11/20/19 05:40 102 H 14 99 11/20/19 05:35 83 15 110/90 100 11/20/19 05:34 36.2 C L 65 14 130/81 99 11/20/19 05:32 36.6 C 84 17 137/68 100 11/20/19 05:30 36.3 C L 78 15 100 11/20/19 05:28 74 16 137/68 100 11/20/19 05:20 85 14 100 11/20/19 05:18 97 H 14 139/93 100 11/20/19 05:15 36.3 C L 11/20/19 05:10 36.3 C L 82 15 121/90 100 11/20/19 05:08 80 17 121/90 100 11/20/19 05:02 123 H 16 121/90 100 11/20/19 05:01 112 H 17 11/20/19 05:00 36.3 C L 11/20/19 04:49 128 H 135/63 100 11/20/19 04:44 86 100 11/20/19 04:39 101 H 100 11/20/19 04:34 87 100 11/20/19 04:30 93 H 114/85 11/20/19 04:29 83 100 11/20/19 04:28 36.3 C L 15 100 11/20/19 04:24 78 100 11/20/19 04:19 95 H 96 11/20/19 04:18 35.7 C L 92 H 18 135/63 98 11/20/19 03:06 83 100 11/20/19 03:01 79 100 11/20/19 02:56 76 100 Pain Intensity Bilateral Abdomen: Pain Intensity: 2 Transfer of Care Handoff Completed per policy Notes Mental Status: alert / awake / arousable and participated in evaluation Patient Amnestic to Procedure: Yes Nausea / Vomiting: adequately controlled Pain: adequately controlled Airway Patency, RR, SpO2: stable & adequate BP & HR: stable & adequate Hydration State: stable & adequate Anesthetic Complications: no major complications apparent Notes: Pt seen, resting in bed. AAO, VSS. Comfortable breathing room air. Reports no recall of surgery or any other complaints. Still anemic, PRBC transfusion ongoing. Plts remain low, PT has responded to cryo/FFP administration. No anesthesia related complications noted. Further care as per molecular biology scientist and certified dialysis technician.
--- NOTE | 2019-11-20 22:15 | Obstetrical Progress Note ---
Date of Service November 20, 2019 Assessment & Plan (1) S/P section: (2) DIC (disseminated intravascular coagulation): Getting another unit of blood but plts are stable slowly removing fluid from Bakri. lochia very good. continue current management. Day #:: 0 Subjective Resting in bed. Noting some discomfort in the rlq that started about 15 minutes ago. Physical Exam Constitutional WD/WN, vitals as above Psychiatric A+Ox3, euthymic affect Genitourinary minimal drainage in bag for Bakri. Removed second 50cc (total of 100cc) from balloon minimal lochia Results & Data Vital Signs (Past 12 Hours) Vital Signs Temp Pulse Pulse Resp BP BP Pulse Ox 11/20/19 21:42 37.1 C 81 14 133/67 100 11/20/19 20:38 78 20 133/67 100 11/20/19 20:08 80 16 141/68 H 99 11/20/19 20:00 75 17 134/85 95 11/20/19 19:53 37 C 79 17 152/93 H 97 11/20/19 19:35 36.8 C 85 20 141/87 H 99 11/20/19 18:32 80 17 132/75 99 11/20/19 17:32 81 21 138/86 97 11/20/19 16:32 81 16 132/79 95 11/20/19 16:00 80 11/20/19 15:32 85 21 144/76 H 100 11/20/19 14:32 97 H 14 145/98 H 100 11/20/19 13:32 91 H 15 127/72 93 11/20/19 12:32 92 H 15 142/91 H 98 11/20/19 11:20 71 13 121/78 99 11/20/19 11:05 68 13 119/73 98 11/20/19 10:50 66 18 121/83 99 11/20/19 10:35 65 11 L 132/79 100 11/20/19 10:33 36.4 C L 70 13 127/76 99 11/20/19 10:20 68 13 127/76 99
[2019-11-21 00:27] LABS: Hematocrit (blood only) 23.2 % (37-47); Hemoglobin 8.1 g/dL (12.0-16.0); Mean Corpuscular Hemoglobin 30.1 pg (25-34); Mean Corpuscular Hgb Conc 34.9 g/dL (32-36); Mean Corpuscular Volume 86.2 fL (80-100); RDW Coefficient of Variation 14.8 % (11.5-14.5); RDW Standard Deviation 46.4 fL (36.4-46.3); Red Blood Count 2.69 M/uL (4.2-5.4); White Blood Count 8.99 K/uL (4.8-10.8)
[2019-11-21] MEDS: SODIUM CHLORIDE 0.9% 1000ML 1,000 ML IV SCH ×3 (00:31→11:14)
[2019-11-21 00:33] LABS: Mean Platelet Volume 11.7 fL (7.4-10.4); Platelet Count 58 K/uL (130-400)
[2019-11-21 00:46] LABS: Prothrombin Time 10.3 Seconds (9.0-12.0)
[2019-11-21 00:47] LABS: Fibrinogen 321 mg/dl (184-400)
[2019-11-21 00:56] LABS: Albumin Globulin Ratio 0.7 (0.9-2); BUN Creatinine Ratio 15.4 (10-20); Bilirubin,Total 0.5 mg/dl (0.2-1); Calcium 7.8 mg/dl (8.5-10.1); Creatinine Clr Calc Pharmacy 84.7 ml/min; Est GFR (African American) 118.2; Globulin 2.8 gm/dl (2.5-4.0); Magnesium 1.6 mg/dl (1.8-2.4); Total Protein 4.8 gm/dl (6.4-8.2)
[2019-11-21] MEDS: MAGNESIUM SULFATE / D5W 1 GM/100 ML BAG IV SCH ×2 (01:24→03:05)
--- NOTE | 2019-11-21 01:46 | Obstetrical Progress Note ---
Date of Service November 21, 2019 Assessment & Plan (1) DIC (disseminated intravascular coagulation): Continues to do well. Balloon out and doing well. Continue to monitor closely. Labs back. fibrinogen now over 300. h/h is hovering around 8. NO evidence of continued bleeding. Vitals are stable. Could consider another unit of blood. plts now 57K. Will see what they are in the am. would like to keep above 50K. Day #:: 0 Subjective Patient resting in bed. Pain tolerable . Physical Exam Constitutional WD/WN, vitals as above Psychiatric A+Ox3, euthymic affect Genitourinary last of water removed from balloon and balloon removed. Pads patient has on are dry. Really no bleeding noted. About 50cc of bloody fluid in the bag. Results & Data Vital Signs (Past 12 Hours) Vital Signs Temp Pulse Pulse Resp BP BP Pulse Ox 11/21/19 00:00 36.9 C 69 12 127/75 98 11/20/19 23:30 66 12 97 11/20/19 23:00 84 16 126/78 98 11/20/19 22:30 77 15 100 11/20/19 22:00 80 15 134/85 100 11/20/19 21:42 37.1 C 81 14 133/67 100 11/20/19 20:38 78 20 133/67 100 11/20/19 20:08 80 16 141/68 H 99 11/20/19 20:00 75 17 133/72 95 11/20/19 19:53 37 C 79 17 152/93 H 97 11/20/19 19:35 36.8 C 85 20 141/87 H 99 11/20/19 18:32 80 17 132/75 99 11/20/19 17:32 81 21 138/86 97 11/20/19 16:32 81 16 132/79 95 11/20/19 16:00 80 11/20/19 15:32 85 21 144/76 H 100 11/20/19 14:32 97 H 14 145/98 H 100
[2019-11-21 04:49] LABS: Hematocrit (blood only) 22.6 % (37-47); Hemoglobin 7.7 g/dL (12.0-16.0); Mean Corpuscular Hgb Conc 34.1 g/dL (32-36); Mean Corpuscular Volume 87.9 fL (80-100); Nucleated RBC # (auto) 0.02 K/uL (0-0); Nucleated RBC % (auto) 0.3 %; RDW Coefficient of Variation 15.2 % (11.5-14.5); RDW Standard Deviation 48.6 fL (36.4-46.3); Red Blood Count 2.57 M/uL (4.2-5.4); White Blood Count 7.94 K/uL (4.8-10.8)
[2019-11-21] MEDS: CEFAZOLIN 2000MG 2,000 MG/15 ML SYR IV SCH (05:09)
[2019-11-21 05:12] LABS: BUN Creatinine Ratio 15.2 (10-20); Calcium 7.5 mg/dl (8.5-10.1); Creatinine Clr Calc Pharmacy 90.5 ml/min; Est GFR (African American) 128.1; Est GFR (Non-African American) 110.5; Magnesium 2.2 mg/dl (1.8-2.4); Potassium 4.1 mmol/L (3.5-5.1)
[2019-11-21 05:13] LABS: Mean Platelet Volume 11.7 fL (7.4-10.4); Platelet Count 58 K/uL (130-400)
[2019-11-21 05:15] LABS: Albumin Globulin Ratio 0.8 (0.9-2); Bilirubin,Total 0.5 mg/dl (0.2-1); Globulin 2.6 gm/dl (2.5-4.0); Total Protein 4.6 gm/dl (6.4-8.2)
[2019-11-21 05:21] LABS: Basophils # (auto) 0.01 K/uL (0-0.2); Basophils % (auto) 0.1 %; Immature Granulocytes # (auto) 0.05 K/uL (0.00-0.02); Immature Granulocytes % (auto) 0.6 %; Lymphocytes # (auto) 1.18 K/uL (1.2-3.4); Lymphocytes % (auto) 14.9 %; Monocytes # (auto) 0.55 K/uL (0.11-0.59); Monocytes % (auto) 6.9 %; Neutrophils # (auto) 6.15 K/uL (1.4-6.5); Neutrophils % (auto) 77.5 %; RBC Morphology Unremarkable
--- NOTE | 2019-11-21 05:40 | Electrocardiogram Report ---
Test Reason : Blood Pressure : / mmHG Vent. Rate : 086 BPM Atrial Rate : 086 BPM P-R Int : 112 ms QRS Dur : 088 ms QT Int : 356 ms P-R-T Axes : 081 066 026 degrees QTc Int : 426 ms Normal sinus rhythm Normal ECG No previous ECGs available Confirmed by Diallo Faith ([id number]) on 11/21/2019 5:40:12 AM Referred By: REFERRED SELF Confirmed By:Diallo Faith
--- NOTE | 2019-11-21 08:02 | Obstetrical Progress Note ---
Date of Service November 21, 2019 Assessment & Plan (1) DIC (disseminated intravascular coagulation): Resolving. Fibrinogen good. PLts stabel 57K. hgb has trended down again. I would encourage transfusion of another unit of PRBC. Having excellent urine output. No evidence of active bleeding. Probably just equilibrating from the massive blood loss. Can probably come up to the floor today. (2) S/P section: When comes to the floor, can probably have mcmahon out, will start to ambulate. overlock sewing machine operator to oral pain meds. Patient asking for toast. Will advance diet to clears. Day #:: 1 Subjective Ambulation: limited ambulation Voiding: mcmahon catheter in place Diet Tolerance:: clear liquids Lochia:: Small Feeding Type:: breast feeding (pumping successfully) Physical Exam Constitutional WD/WN, vitals as above Cardiovascular Extremities: + edema (trace); no calf tenderness Gastrointestinal (Abdomen) soft, appropriately tender some bruising around the incision and into the mons and labia ff/ appropriately tender at 1 below u Psychiatric A+Ox3, euthymic affect Results & Data Vital Signs (Past 12 Hours) Vital Signs Temp Pulse Pulse Resp BP BP Pulse Ox 11/21/19 06:30 69 13 93 11/21/19 06:00 72 16 121/68 99 11/21/19 05:30 66 10 L 98 11/21/19 05:00 66 12 124/68 98 11/21/19 04:30 65 12 98 11/21/19 04:00 36.7 C 65 14 116/67 98 11/21/19 03:00 68 12 99 11/21/19 02:45 67 13 118/70 99 11/21/19 02:30 68 12 99 11/21/19 02:00 68 15 140/83 98 11/21/19 01:30 85 18 100 11/21/19 01:00 72 14 158/74 H 95 11/21/19 00:30 85 15 100 11/21/19 00:00 36.9 C 69 12 127/75 98 11/20/19 23:30 66 12 97 11/20/19 23:00 84 16 126/78 98 11/20/19 22:30 77 15 100 11/20/19 22:00 80 15 134/85 100 11/20/19 21:42 37.1 C 81 14 133/67 100 11/20/19 20:38 78 20 133/67 100 11/20/19 20:08 80 16 141/68 H 99 11/20/19 20:00 75 17 133/72 95
[2019-11-21] MEDS: SIMETHICONE 80 MG CHEW PO SCH ×4 (08:50→19:48)
[2019-11-21] MEDS: FERROUS SULFATE 325 MG TAB PO SCH (08:51)
[2019-11-21] MEDS: PRENATAL VITAMIN 1 TAB PO SCH (08:51)
[2019-11-21] MEDS: DOCUSATE SODIUM 100 MG CAP PO SCH ×2 (08:53→19:48)
--- NOTE | 2019-11-21 08:58 | Critical Care Progress Note ---
Date of Service November 21, 2019 Assessment & Plan (1) S/P admission to ICU (intensive care unit): 29-year-old female with a presentation of placental abruption and DIC. Patient is doing white well currently. Not requiring blood transfusion this morning. Hemoglobin has dropped down slightly. We will continue to keep an eye on this. Blood pressure have been stable. Defer blood pressure management to her primary team at this time. No signs of significant preeclampsia. She does have protein in her urine which will need a work-up. LDH is trending down. AST continues to be mildly elevated at 70. Otherwise, minimal ICU needs. Continue advancing diet. Remove Bright. Platelet count remains low but stable. She does appear a bit edematous, but this should improve as her urine output is picking up. Can likely be transferred to the floor later today. Discussed with patient's bedside RN. Also discussed on multidisciplinary rounds. (2) DIC (disseminated intravascular coagulation): (3) Placenta abruption, delivered, current hospitalization: (4) Acute kidney injury: Admission and Anticipated Discharge Date Admission Date: November 20, 2019 Subjective Patient is doing quite well today. She has some abdominal soreness. She is able to pass gas. Minimal p.o. intake as of yet. She requested for toast today. No blood transfusions overnight. Overall, she is in good spirits. Review of Systems Review of Systems: All systems reviewed & are unremarkable except as noted in HPI & below Physical Exam Constitutional: WD/WN, vitals as above Eyes: PERRL, conjunctivae normal, anicteric sclerae ENMT: external ear and nose normal, oropharynx normal Neck: trachea midline, no thyromegaly Respiratory: normal respiratory effort, lungs clear to auscultation Cardiovascular: RRR, no murmur, no edema Gastrointestinal (Abdomen): Mildly tender to palpation. Large scar noted. Musculoskeletal: no cyanosis or clubbing, extremities motor strength 5/5 Skin: no rashes, warm and dry Neurologic: PERRL, EOMI, accommodation nl, no face palsy, no dysarthria Psychiatric: A+Ox3, euthymic affect Results & Data Results & Data ([facility]) Vital Signs (Past 12 Hours) Vital Signs Temp Pulse Pulse Resp BP BP Pulse Ox 11/21/19 07:45 77 25 H 156/95 H 92 11/21/19 06:45 72 14 132/78 100 11/21/19 06:30 69 13 93 11/21/19 06:00 72 16 121/68 99 11/21/19 05:30 66 10 L 98 11/21/19 05:00 66 12 124/68 98 11/21/19 04:30 65 12 98 11/21/19 04:00 98.1 F 65 14 116/67 98 11/21/19 03:00 68 12 99 11/21/19 02:45 67 13 118/70 99 11/21/19 02:30 68 12 99 11/21/19 02:00 68 15 140/83 98 11/21/19 01:30 85 18 100 11/21/19 01:00 72 14 158/74 H 95 11/21/19 00:30 85 15 100 11/21/19 00:00 98.4 F 69 12 127/75 98 11/20/19 23:30 66 12 97 11/20/19 23:00 84 16 126/78 98 11/20/19 22:30 77 15 100 11/20/19 22:00 80 15 134/85 100 11/20/19 21:42 98.8 F 81 14 133/67 100 I personally reviewed her laboratory data, chest imaging and previous notes. Coding Level of Care Code 87888 Subseq Hosp Care Lvl 3 Diagnoses S/P admission to ICU (intensive care unit) DIC (disseminated intravascular coagulation) D65 Placenta abruption, delivered, current hospitalization O45.90 Acute kidney injury N17.9
[2019-11-21 12:30] LABS: Hematocrit (blood only) 24.2 % (37-47); Hemoglobin 8.5 g/dL (12.0-16.0)
[2019-11-21] MEDS: OXYCODONE/ACETAMINOPHEN 5mg/325mg TAB PO PRN ×2 (14:26→19:48)
[2019-11-21] MEDS ORDERED: bisacodyL 5 MG TABEC PO SCH (20:00)
[2019-11-22] MEDS ORDERED: bisacodyL 10 MG SUPP PR PRN (04:23)
[2019-11-22] MEDS: OXYCODONE/ACETAMINOPHEN 5mg/325mg TAB PO PRN ×2 (04:32→09:12)
--- NOTE | 2019-11-22 06:54 | Obstetrical Progress Note ---
Date of Service <Charles Kong DO - Last Filed: 11/22/19 06:58> November 22, 2019 Assessment & Plan <Charles Kong DO - Last Filed: 11/22/19 06:58> (1) with 34 completed weeks gestation: POD#2 -Vitals reviewed, WNL - Blood Type O+ - S/P ICU stay 2/2 DIC post emergent - Clinically stable. - Feels well today. Eating well, voiding well, ambulating well. - Pain well controlled. - Routine post care - After discharge will have [address] Arnold (2) DIC (disseminated intravascular coagulation): (3) Placenta abruption, delivered, current hospitalization: (4) S/P section: Day #:: 2 Subjective <Charles Kong DO - Last Filed: 11/22/19 06:58> Ambulation: ambulating normally Voiding: no voiding problems Passing Gas:: Yes Diet Tolerance:: regular diet Lochia:: Small Feeding Type:: breast feeding (pumping) Current Pain Level(1-10): 3 (improved with analgesics) Patient is a 29 POD#2. Patient states that she is doing well this morning and that her pain is well controlled. She notes that she is anxious to leave since she has not had a chance to see her baby yet since . She is understanding, however, if she would need to stay another day. Constitutional: no fever and no chills Respiratory: no cough, no dyspnea and no wheezing Cardiovascular: no chest pain, no dyspnea, no dyspnea on exertion, no edema and no calf pain Breast: no breast pain Gastrointestinal: no abdominal pain, no nausea and no vomiting Genitourinary (female): no dysuria Neurologic: no headache(s) Physical Exam <Charles ChowdarynDO - Last Filed: 11/22/19 06:58> Constitutional WD/WN, vitals as above Respiratory normal respiratory effort, lungs clear to auscultation Cardiovascular Rate/Rhythm: regular rate and regular rhythm Heart Sounds: normal S1 and normal S2; no click, no gallop, no murmur and no cardiac rub Extremities: + edema (+1); no calf tenderness Gastrointestinal (Abdomen) Inspection/Auscultation: abdomen normal to inspection, normal bowel sounds and + abdominal surgical incision (Clean and Dry, No Pus noted. some bruising around incision) Percussion/Palpation: + abdomen tender (slighty ttp in lower quads, appropriate) and abdomen soft Genitourinary OB Exam Abdomen: + fundal height Fundus: + firm and + relation to umbilicus (3cm below); not tender and not boggy Results & Data <Charles Kong DO - Last Filed: 11/22/19 06:58> Vital Signs (Past 12 Hours) Vital Signs Temp Pulse Pulse Resp BP Pulse Ox 11/22/19 04:25 36.9 C 86 18 131/84 100 11/21/19 23:35 36.9 C 74 18 128/76 100 11/21/19 19:30 37 C 76 18 127/79 100 <Lan Lopez MD - Last Filed: 11/22/19 08:00> Co-Signing Physician Notes Patient seen and evaluated and agree with the above findings and plan. Stable for discharge Resident Activity Tracking <Charles Kong DO - Last Filed: 11/22/19 06:58> Resident Involvement: Resident Care Provided Care Provided: OB Delivery
[2019-11-22] MEDS: FERROUS SULFATE 325 MG TAB PO SCH (08:04)
[2019-11-22] MEDS: SIMETHICONE 80 MG CHEW PO SCH (08:04)
[2019-11-22] MEDS: DOCUSATE SODIUM 100 MG CAP PO SCH (08:04)
[2019-11-22] MEDS: PRENATAL VITAMIN 1 TAB PO SCH (08:04)
[2019-11-22 08:09] LABS: Hematocrit (blood only) 25.4 % (37-47); Hemoglobin 8.6 g/dL (12.0-16.0)
--- NOTE | 2019-11-23 14:12 | Discharge Summary (DS) ---
ADMIT DIAGNOSES: 1. Intrauterine at approximately 34 weeks. 2. Cramping. 3. bradycardia. DISCHARGE DIAGNOSES: 1. Intrauterine at approximately 34 weeks. 2. Cramping. 3. bradycardia. 4. Massive abruption. 5. Disseminated intravascular coagulation. PROCEDURES: 1. Emergent primary low transverse section. 2. Massive transfusion of blood products. 3. Bakri balloon. HISTORY OF PRESENT ILLNESS: The patient is a 29-year-old white female 1, para 0 with unknown EDC who presented as an unassigned patient for cramping. The patient was having her care in [place]. She was in town for a baby shower. She started noticing some cramping and abdominal discomfort a little after midnight and presented to labor and delivery. I had difficulty obtaining heart tones, so I brought the ultrasound into the room, heart tones were in the 70s. Decision was made for urgent delivery. For the rest of the patient's history and physical, please see her dictated history and physical. Of note, records were not available throughout her hospitalization. ASSESSMENT: This is a 29-year-old white female 1, para 0 with a at approximately 34 weeks with bradycardia. HOSPITAL COURSE: The patient was admitted. She underwent an emergent primary low transverse section to deliver a viable in cephalic presentation. There was noted to be a massive abruption as the cause for the bradycardia with a [place] uterus. Estimated blood loss at the time of surgery was 1500 mL. The surgery itself was uncomplicated, but when the patient returned to the recovery room, it was found that she was in DIC. Her hemoglobin was 7. Her fibrinogen was 72. Her platelets were about 50,000. She was transferred to the intensive care unit because of the need for more intensive monitoring, she needed a central line for massive blood product replacement. Before leaving the operating room, a Bakri balloon was placed into her uterus for a concern that she would have bleeding from her uterus secondary to her DIC. She was transferred to the ICU where she received 4 units of packed red blood cells, 2 units of cryoprecipitate, 1 dose pack of platelets and 1 dose of FFP. She remained in the ICU for approximately 24 hours. Her Bakri balloon was removed approximately 18 hours after her surgery and she did quite well with minimal bleeding. Once the patient was transferred to the floor, her Bright catheter was removed. She was able to ambulate. She tolerated a regular diet and was able to tolerate p.o. pain meds. Because her baby had been transferred to [facility], she desired discharge. She was feeling well and was discharged to home. She will follow up with her primary OB for care. The cause of the abruption is uncertain at this point in time. The patient had no signs and symptoms of preeclampsia other than when she presented to labor and delivery, after urinating, she was noted to dip +3 protein. She certainly was not hypertensive upon presentation or in the immediate postoperative period while she was in the ICU receiving blood products. However, once she reached the floor, she did have blood pressures that ranged from 120s-159/66-95. The patient had a mildly elevated liver function, but this is most likely secondary to her massive transfusion. Her creatinine was bumped to a max of 1.19 right after the surgery to a max of 1.28. This dropped to 0.73 by the day of discharge, so it is hard to know if creatinine was bumped and elevated. The patient did not present with signs and symptoms of preeclampsia. At the time of admission and afterwards, she denied headache, nausea, vomiting, vision changes or increase in her swelling. The patient denied abdominal trauma, so the ultimate cause of her massive abruption is at this point unknown. I am uncertain whether the elevated blood pressures that were noted when she went to the floor were more secondary to increasing movement and pulling the Bright catheter with increased just generalized pain than to any other cause. Prior to discharge, her blood pressure was taken multiple times and was within normal range.
== END 2019-11-22 11:20 | disposition home or self-care (01) | DRG 786 ==
LOC: OPB 02:41 → 4S1 02:44 → MERGE 03:00 → 1E 05:19 → 4S2 11-21 13:33